=== PATIENT | female | born 1965 | race Caucasian/White ===

== ENCOUNTER 2023-01-13 09:31 | Outpatient (CLI) | payer BC | END 2023-01-13 09:32 | disposition home or self-care (01) | LOC: CSHCT 09:31 | PROVIDERS: ATTEND Otolaryngology Plastic Surgery within the Head & Neck | DX: H90.3 Sensorineural hearing loss, bilateral (principal) | CPT/HCPCS: 70480 ==

== ENCOUNTER 2023-09-18 11:10 | Outpatient (CLI) | payer BC ==
[2023-09-18 15:24] LABS: Hematocrit 39.3 % (34.9-44.5)
== END 2023-09-18 11:11 | disposition home or self-care (01) ==
LOC: CSHLAB 11:10
PROVIDERS: ATTEND Otolaryngology Plastic Surgery within the Head & Neck
DX: Z01.818 Encounter for other preprocedural examination (principal); H90.3 Sensorineural hearing loss, bilateral
CPT/HCPCS: 85014; 93005; 93010

== ENCOUNTER 2023-09-25 05:54 | Day surgery (SDC) | payer BC ==
[2023-09-18 11:42] VITALS: BMI 28.5
[2023-09-25] MEDS ORDERED: Lidocaine 1% PF 5 ML VIAL ONE (06:29)
[2023-09-25] MEDS ORDERED: Rocuronium Bromide 10 MG/ML (10ML VIAL) ONE (06:29)
[2023-09-25] MEDS ORDERED: Ondansetron PF 4 MG/2 ML Vial ONE (06:29)
[2023-09-25] MEDS ORDERED: Dexamethasone 20 MG/5 ML VIAL ONE (06:29)
[2023-09-25] MEDS ORDERED: PROPOFOL 20 ML ONE ×2 (06:30→08:01)
[2023-09-25] MEDS ORDERED: PHENYLEPHRINE-NS 100 MCG/ML 10 ML SYRINGE ONE (06:30)
[2023-09-25] MEDS ORDERED: Fentanyl 250 MCG/5 ML VIAL ONE (06:30)
[2023-09-25] MEDS ORDERED: Midazolam HCl 2 mg/2 ml Vial ONE (06:30)
[2023-09-25] MEDS ORDERED: Sevoflurane 250 ML INH ANEST BOTTLE ONE (06:33)
[2023-09-25] MEDS ORDERED: Dexmedetomidine 200 MCG/2 ML VIAL ONE (06:33)
[2023-09-25] MEDS ORDERED: Lidocaine 1% w/Epinephrine 1:100K 20 ML VIAL ONE (06:38)
[2023-09-25] MEDS ORDERED: Mupirocin 2% Ointment 22 GM Tube ONE (06:38)
[2023-09-25] MEDS ORDERED: EPINEPHrine 1 MG/ML VIAL ONE (06:41)
[2023-09-25] MEDS ORDERED: CEFAZOLIN 1 GM VIAL ONE (07:23)
[2023-09-25] MEDS ORDERED: ePHEDrine Sulfate 50 MG/10 ML VIAL ONE (07:51)
[2023-09-25] MEDS ORDERED: HYDROcodone/Acetaminophen 5/325 mg Tablet ONE (10:25)
== END 2023-09-25 11:20 | disposition home or self-care (01) ==
LOC: CSHSDC 05:54
PROVIDERS: ATTEND Otolaryngology Plastic Surgery within the Head & Neck
PROC: F14Z09Z Cochlear Implant Assessment using Cochlear Implant Equipment (ICD-10-PCS; principal; 2023-09-25)
DX: H90.3 Sensorineural hearing loss, bilateral (principal); Z87.891 Personal history of nicotine dependence
CPT/HCPCS: 70250; J0171; J0690; J1100; J2250; J2405; J2704; J3010; L8614; Q9968